=== PATIENT | female | born 1950 ===

== ENCOUNTER 2023-07-26 08:29 | Inpatient (IN) ==
[2023-07-26] MEDS ORDERED: LORazepam 2 mg VIAL 1 ml IV PUSH PRN ×5 (10:18→11:47)
[2023-07-26] MEDS ORDERED: Lorazepam PYXIS KEY PRN (10:53)
[2023-07-26] MEDS: Enoxaparin 40 MG/0.4 ML SYR SUBCUT SCH (11:21)
[2023-07-27 06:53] LABS: Calcium 8.8 mg/dL (8.6-10.3); Creatinine, Serum 0.51 mg/dL (0.51-0.95); Magnesium 1.9 mg/dL (1.9-2.7); Potassium 3.8 mmol/L (3.5-5.0); eGFR CKD-EPI 98.5 (>60)
[2023-07-27] MEDS: Enoxaparin 40 MG/0.4 ML SYR SUBCUT SCH (10:52)
[2023-07-28 07:40] LABS: Calcium 9.6 mg/dL (8.6-10.3); Creatinine, Serum 0.57 mg/dL (0.51-0.95); Magnesium 2.1 mg/dL (1.9-2.7); Potassium 4.3 mmol/L (3.5-5.0); eGFR CKD-EPI 95.9 (>60)
[2023-07-28] MEDS: Enoxaparin 40 MG/0.4 ML SYR SUBCUT SCH (10:21)
[2023-07-28] MEDS ORDERED: Senna TAB 8.6 mg TAB PO PRN (10:24)
[2023-07-28] MEDS ORDERED: Magnesium Hydroxide LIQ 30 ML UDC PO PRN (10:24)
[2023-07-28] MEDS: Senna TAB 8.6 mg TAB PO SCH ×2 (12:39→20:10)
[2023-07-28] MEDS ORDERED: Lactated Ringers 1000 ml BAG 1,000 ML IV SCH (17:48)
[2023-07-29] MEDS: Senna TAB 8.6 mg TAB PO SCH ×2 (08:56→21:11)
[2023-07-29] MEDS: Enoxaparin 40 MG/0.4 ML SYR SUBCUT SCH (11:07)
[2023-07-30 09:58] VITALS: BP 125/77
[2023-07-30] MEDS: Senna TAB 8.6 mg TAB PO SCH (10:09)
[2023-07-30] MEDS: Enoxaparin 40 MG/0.4 ML SYR SUBCUT SCH (12:40)
== END 2023-07-30 12:35 | disposition home or self-care (01) | DRG 101 ==
LOC: AA 08:29 → MEDTELE 10:18
PROVIDERS: ADMIT Psychiatry & Neurology Neurology; ATTEND Psychiatry & Neurology Neurology